=== PATIENT | female | born 1955 | race Caucasian/White ===

== ENCOUNTER 2016-06-20 16:22 | Inpatient (IN) | payer BC ==
--- NOTE | ~2016-06-20 | HP ---
History And Physical [address] [place] [address] NAME: ROSAURA KAPADIA : 51 STATUS : [facility]M [facility]#: [id number] AGE: 60 ADM/REG DATE : 06/20/16 MR#: [id number] REPORT SERV DATE: 06/20/16 DICTATED BY: BÁRBARA HU DATE: 06/20/16 REPORT STATUS : Draft TRANSCRIBED BY: MODL DATE: 06/20/16 DATE OF ADMISSION: 06/20/2016 ADDENDUM: ABG came back and showed pH of 7.36, pCO2 of 46, PO2 of 50, oxygen saturation was 85.2 on 28% of inspired oxygen, which is consistent with hypoxemic respiratory failure. We will monitor patient's steroids. Will be given DuoNeb breathing treatment. She is currently on oxygen 3 L nasal cannula, but if necessary the patient will be started on BiPAP. MG/MONALISA Bárbara Hu M.D. / [id number] CC: Bárbara Hu M.D.
--- NOTE | ~2016-06-20 | HP ---
History And Physical [id number] [facility] [place]. [address] NAME: ROSAURA KAPADIA : 51 STATUS : ADM IN [facility]#: [id number] AGE: 60 ADM/REG DATE : 06/20/16 MR#: [id number] REPORT SERV DATE: 06/20/16 DICTATED BY: BÁRBARA HU DATE: 06/20/16 REPORT STATUS : Draft TRANSCRIBED BY: MODLucia DATE: 06/20/16 DATE OF ADMISSION: 06/20/2016 HISTORY OF PRESENT ILLNESS: The patient is a very pleasant, 60-year-old female, who was transferred from [facility] Emergency Room from the care of Dr. Hall because of the COPD exacerbation. On arrival to the floor, the patient was dyspneic and hypoxemic on room air. She denies any chest pain. She is complaining of a dry-nonproductive cough. She says that her symptoms started approximately three days ago. She reported that her initially had upper respiratory infection and then, she contracted from him, and she had a sensation of being feverish, hot and cold, as well as she denies any chest pain. No abdominal pain. No diarrhea. No constipation. No headaches. REVIEW OF SYSTEMS: All 14-point review of systems done and negative except what is stated in the history of present illness. PAST MEDICAL HISTORY: Known for history of COPD. She denies use of home oxygen. She said that she had a bad exacerbation 3 years ago, but not recently. She also has history of hypertension. She denies any history of heart attacks. No strokes. No diabetes. No thyroid disease. PAST SURGICAL HISTORY: Includes right-sided breast cancer, status post mastectomy in 1998; and also a history of back surgery. SOCIAL HISTORY: She smokes one pack per day, sometimes more than one pack a day and sometimes less, but mostly one pack a day for many years. No alcohol. No recreational drugs. She is . Her is at the bedside. She has one grown up child. FAMILY HISTORY: Mother of pancreatic cancer. Father of heart problems. ALLERGIES: SHE IS ALLERGIC TO CODEINE. HOME MEDICATIONS: Include Norvasc 5 mg a day and losartan 100 mg a day. PHYSICAL EXAMINATION: GENERAL: Overweight female, in mild respiratory distress. VITAL SIGNS: Blood pressure 131/67. Oxygen saturation was 95 on 3 L nasal cannula, it was 88 on room air. Heart rate 88-92, respiratory rate 18-20, temperature 97.1. HEENT: Head atraumatic, normocephalic. Conjunctivae clear. Pupils are equal and reactive to light and accommodation. Extraocular muscles are intact. NECK: Supple. Trachea is midline. No supraclavicular or cervical lymphadenopathy. LUNGS: Diminished breath sounds bilaterally with slightly increased respiratory effort. CARDIOVASCULAR SYSTEM: Regular rate and rhythm. Point of maximal impulse is not displaced. ABDOMEN: Soft, nontender, nondistended. Positive normoactive bowel sounds. Obese. EXTREMITIES: No clubbing, cyanosis, or edema. SKIN: Normal color and turgor. History And Physical [address] [address] NAME: ROSAURA KAPADIA : 51 STATUS : ADM IN [facility]#: [id number] AGE: 60 ADM/REG DATE : 06/20/16 MR#: [id number] REPORT SERV DATE: 06/20/16 DICTATED BY: BÁRBARA HU DATE: 06/20/16 REPORT STATUS : Draft TRANSCRIBED BY: MONALISA DATE: 06/20/16 NEUROLOGIC: Awake, alert, and oriented in time, place, and person. Muscle strength is 5/5 bilaterally on upper and lower extremities. PSYCHIATRIC: Normal mood and affect. LABORATORY RESULTS: Labs were done today at [facility] showed sodium of 137, potassium is 4.4, chloride down to 102, carbon dioxide 28, blood sugar 141, BUN 10, creatinine 0.8. She had an EKG done at [facility], which showed normal sinus rhythm with a rate of 87, possible left atrial enlargement, anterior infarction of undetermined age. Chest x-ray which was done at [facility], no acute abnormality, only coarse bronchovascular structures, typically emphysema or chronic lung disease. White count was 7.4, hemoglobin 15.6, hematocrit 48.1, and platelet count was 179. Troponin was 0. ASSESSMENT AND PLAN: 1. This is a very pleasant, 60-year-old female with a past medical history of chronic obstructive pulmonary disease, who presented with acute chronic obstructive pulmonary disease exacerbation, very significant, accompanied with dyspnea and mild respiratory distress. 2. Hypoxemia. Her oxygen saturation initially on arrival to the [facility] was 82% on room air. She was hypoxemic. She was in acute respiratory failure, but she responded well to oxygen. Plan will be: She was already given Decadron at [facility]. We will continue intravenous Solu-Medrol intravenously as well as she is currently on oxygen. I am going to order arterial blood gas on this patient, and we will also give her DuoNeb breathing treatment, and we will put her on oral Levaquin. There are no infiltrates, but since this is severe chronic obstructive pulmonary disease exacerbation, we will put her on oral Levaquin. We will check her procalcitonin, as well as we will check her troponin serially, repeat EKG, and repeat chest x-ray. 3. Hypertension. We will continue her blood pressure medications which she takes at home, as well as we will add hydralazine intravenously as needed for systolic blood pressure of 160 and above. Arterial blood gas is currently ordered, I will review it, and I also consulted senior marketing manager since she is in respiratory distress. If the arterial blood gas is required, we may put her on BiPAP as well. 4. We will check echocardiogram in the morning. 5. Dr. Malloy as well is consulted. MG/MONALISA Bárbara Hu M.D. / [id number] CC: Bárbara Hu M.D. History And Physical [address] [address] NAME: ROSAURA KAPADIA : 51 STATUS : ADM IN [facility]#: [id number] AGE: 60 ADM/REG DATE : 06/20/16 MR#: [id number] REPORT SERV DATE: 06/20/16 DICTATED BY: BÁRBARA HU DATE: 06/20/16 REPORT STATUS : Draft TRANSCRIBED BY: MODL DATE: 06/20/16 Tatyana Cheng M.D.
--- NOTE | ~2016-06-20 | CN ---
Consultation Report [id number] [place]. [address] NAME: ROSAURA KAPADIA : 51 STATUS : ADM IN [facility]#: [id number] AGE: 60 ADM/REG DATE : 06/20/16 MR#: [id number] REPORT SERV DATE: 06/21/16 DICTATED BY: DESHAWN CROOKS DATE: 06/21/16 REPORT STATUS : Draft TRANSCRIBED BY: MODL DATE: 06/21/16 CONSULTATION DATE OF CONSULTATION: 06/21/2016 REASON FOR CONSULTATION: Rosaura Kapadia is a 60-year-old female, who is referred for aortic stenosis on echocardiogram. HISTORY OF PRESENT ILLNESS: Mrs. Kapadia has a long history of COPD with continued cigarette smoking. She has undergone an undergone and was admitted to the hospital. At that time, she had an echocardiogram done, which showed mild aortic stenosis. REVIEW OF SYSTEMS: No history of syncope or presyncope. No history of congestive heart failure, chest pain, or chest discomfort. No other symptoms of valvular heart disease are found. PAST MEDICAL HISTORY: 1. COPD with continued cigarette smoking. 2. Hypertension with left ventricular hypertrophy. SOCIAL HISTORY: She continues to smoke. She does not drink. She is fairly inactive. FAMILY HISTORY: Negative for early heart disease. PHYSICAL EXAMINATION: VITAL SIGNS: Blood pressure is 169/79, pulse is 96, and she is afebrile. GENERAL: Resting comfortably. Nutritional status appears adequate. EYES: PERRLA. LUNGS: No labored use of accessory muscles. Expiratory wheezes are heard. COR: PMI is not displaced. No thrills or heaves. NL S1 and S2. Systolic ejection murmur is heard diffusely. PULSES: Carotids without bruits. ABD: +BS, nontender. EXT: No cyanosis, clubbing, or edema. SKIN: No petechiae. NEURO: Alert and oriented. Does not appear anxious or depressed. LABORATORY EVALUATION: 1. Echocardiogram showed mild aortic stenosis. It also shows left ventricular hypertrophy. 2. Troponin is negative. 3. BNP is 15. ASSESSMENT: At this time, she has mild aortic stenosis. I do not see any reason to treat at Consultation Report [address] [place]. [address] NAME: ROASURA KAPADIA : 51 STATUS : ADM IN PAT#: [id number] AGE: 60 ADM/REG DATE : 06/20/16 MR#: [id number] REPORT SERV DATE: 06/21/16 DICTATED BY: DESHAWN CROOKS DATE: 06/21/16 REPORT STATUS : Draft TRANSCRIBED BY: MONALISA DATE: 06/21/16 this time. She will need a repeat echocardiogram in two or three years. YESENIA/MONALISA Deshawn Crooks M.D. / [id number] CC: Jimmy Waddell M.D.
--- NOTE | ~2016-06-20 | CN ---
Consultation Report [facility] [address] [place]. [address] NAME: ROSAURA KAPADIA : 51 STATUS : ADM IN PAT#: [id number] AGE: 60 ADM/REG DATE : 06/20/16 MR#: [id number] REPORT SERV DATE: 06/21/16 DICTATED BY: NILESH FELIZ DATE: 06/21/16 REPORT STATUS : Draft TRANSCRIBED BY: MODL DATE: 06/21/16 CONSULTATION DATE OF CONSULTATION: 06/21/2016 CHIEF COMPLAINT: Shortness of breath in a patient experiencing an exacerbation of COPD. HISTORY OF PRESENT ILLNESS: Mrs. Rosaura Kapadia is a very pleasant 60-year-old white female with a past medical history significant for clinical COPD, hypertension, and previous breast cancer who presents to [facility] from outside facility with complaints of worsening shortness of breath of two to three days' duration. It should be noted that the patient has not been hospitalized recently. Mrs. Kapadia is not currently followed by comfort station supervisor. She does not usually require supplemental oxygen. She is on no pulmonary medications. The patient smoked up until the time of presentation. She states that she has smoked approximately one pack a day for the last fifty years. She states that she has been assessed for obstructive sleep apnea as recently as 5 years ago. She describes her exercise tolerance as being excellent prior to this recent hospitalization, being able to ambulate over a city block without experiencing any shortness of breath. Mrs. Kapadia states that her developed cold-like symptoms approximately a week ago. Soon after, she began to notice increasing shortness of breath as well as subjective fever and one episode of night sweats. She started an unknown antibiotic that had previously been prescribed to her for bronchitis. She initially felt "slightly better." Unfortunately, she had worsening of her shortness of breath which culminated in her presentation to an outside facility. Upon arrival to the outside facility, it appears that her oxygen saturations were as low as 82% on room air. She was placed on supplemental oxygen with some improvement. She was given breathing treatments and was transferred to [facility] for further treatment. Since that time, she has received antibiotics, steroids, and breathing treatments with some improvement in her overall status. For the aforementioned reasons, she has been referred to the Pulmonary Service for further assessment. Currently, the patient's main pulmonary complaint is shortness of breath. This is worse on exertion and relieved by rest. She is requiring supplemental oxygen at 3-4 L with appropriate oxygenation sats. She does have a mild cough, but it is not producing a great deal of sputum. She denies any overt wheezing. She has had no recent episodes of hemoptysis. She denies previous pneumonias. She states that she did have an exacerbation of her breathing approximately three to four years ago, but otherwise her pulmonary status is stable. The patient does have known hypertension. She currently denies murmurs, angina, or palpitations. She denies any paroxysmal nocturnal dyspnea or worsening dependent edema. Consultation Report [facility] [address] [facility] [place]. [address] NAME: ROSAURA KAPADIA : 51 STATUS : ADM IN [facility]#: [id number] AGE: 60 ADM/REG DATE : 06/20/16 MR#: [id number] REPORT SERV DATE: 06/21/16 DICTATED BY: NILESH FELIZ DATE: 06/21/16 REPORT STATUS : Draft TRANSCRIBED BY: MONALISA DATE: 06/21/16 In regard to constitutional symptoms, she does confirm subjective fevers and one episode of night sweats. She denies any rigors. She denies any nausea or vomiting. She has had no abdominal pain or edema. She does have some left-sided pleuritic pain. PAST MEDICAL HISTORY: 1. Hypertension. 2. Breast cancer. 3. Clinical COPD. PAST SURGICAL HISTORY: 1. Right mastectomy. 2. Bilateral cataract surgery. 3. Back surgery in 2011. 4. Left hip surgery. 5. Right knee surgery. FAMILY HISTORY: There is a family history of pancreatic cancer. She states her father had emphysema. SOCIAL HISTORY: The patient is . She has one child who is in good health. She previously worked as a cross country truck driver. She denies any known exposures to dust, silica, or asbestos. She has no new pets in the home. TOBACCO/ALCOHOL: As previously mentioned, Mrs. Kapadia has smoked up until the time of presentation. She smoked approximately one pack a day for the last fifty years. She denies any recent alcohol or drug use. MEDICATIONS: 1. Albuterol. 2. Amlodipine 5 mg. 3. Zyrtec 10 mg. 4. Losartan 100 mg. 5. Naproxen 220 mg. ALLERGIES: THE PATIENT HAS ADVERSE REACTION TO CODEINE. REVIEW OF SYSTEMS: Complete review of systems was performed with pertinent positives and negatives contained within body of the HPI. PHYSICAL EXAMINATION: VITAL SIGNS: Blood pressure is 141/81, heart rate is 95, T-max is 97.8, respiratory rate is 18, SpO2 is 97% on 4 L. GENERAL: The patient is a pleasant, well-nourished/well-developed female who is not currently exhibiting any signs of acute distress. The patient is obese. Consultation Report [place] [id number] [facility] [place]. [address] NAME: ROSAURA KAPADIA : 51 STATUS : ADM IN [facility]#: [id number] AGE: 60 ADM/REG DATE : 06/20/16 MR#: [id number] REPORT SERV DATE: 06/21/16 DICTATED BY: NILESH FELIZ DATE: 06/21/16 REPORT STATUS : Draft TRANSCRIBED BY: MODLucia DATE: 06/21/16 Skin: Skin with appropriate texture and turgor. No rashes, lesions, or ulcers. Nails are clear without cyanosis or clubbing. HEENT: Head: Skull is normocephalic/atraumatic. Facies symmetric. No masses or lesions. Eyes: Sclera anicteric, conjunctiva pink without exudates. Extra ocular movements intact. Pupils are equal, round, reactive to light. Ears: Auricles and tragus without pain to palpation. Hearing is grossly intact. Nose: Bilateral nasal patency. Sinuses without tenderness upon palpation. Throat: Lips, oral mucosa, tongue, palate, and pharynx pink and moist without lesions. Uvula rises equally on phonation. Tongue midline without deviation. Exceedingly poor dentition. NECK: Neck supple. Trachea midline. No cervical lymphadenopathy appreciated. THORAX/LUNGS: Diminished breath sounds in the posterior bases. No wheezes or rhonchi appreciated. CARDIOVASCULAR: Regular rate and rhythm. No murmurs, rubs, or gallops. Anterior chest without thrills, heaves, or lifts. ABDOMEN: Soft. Non-distended, non-tender. Active bowel sounds in all four quadrants. No hepatosplenomegaly noted. PERIPHERAL VASCULAR: Mild nonpitting edema. No varicosities, stasis changes, open sores, ulcerations, or phlebitis. 2+ pulses in radial and dorsalis pedis. MUSCULOSKELETAL: Full AROM and PROM in all joints. No evidence of erythema, deformity, or crepitus. NEUROLOGIC: CN II - XII grossly intact. Good muscle bulk and tone bilaterally. Strength 5/5 throughout. PSYCHIATRIC: The patient demonstrates good judgment and insight. Pt is A&O x 3. ACCESSORY DATA: Reveals a creatinine of 0.86, blood glucose is 222, BNP is 15.2, procalcitonin is 0.06. Arterial blood gas on 2 L reveals pH of 7.36, PaCO2 of 46, PaO2 of 50, and a bicarb of 25.4. White blood cell count is 4200. Chest x-ray reveals no acute cardiopulmonary process. An echocardiogram is pending. IMPRESSION: 1. Acute hypoxemic respiratory failure. 2. Acute exacerbation of chronic obstructive pulmonary disease. 3. Tobacco dependency/complicated. 4. Hypertension. 5. Morbid obesity. 6. Possible obstructive sleep apnea. PLAN: 1. At this time, we will transition the patient to oral antibiotics. We will also adjust her steroids accordingly. We will place her on a full armamentarium of nebulized medications and add EzPAP to these treatments. We have offered the patient outpatient followup as well as pulmonary function testing. 2. In regard to the patient's tobacco dependency, we have spent greater than ten minutes counseling her in the benefits of smoking cessation. Consultation Report [address] [place]. [address] NAME: ROSAURA KAPADIA : 51 STATUS : ADM IN [facility]#: [id number] AGE: 60 ADM/REG DATE : 06/20/16 MR#: [id number] REPORT SERV DATE: 06/21/16 DICTATED BY: NILESH FELIZ DATE: 06/21/16 REPORT STATUS : Draft TRANSCRIBED BY: MODL DATE: 06/21/16 3. The patient states that, she has been tested as recently as five years for obstructive sleep apnea. That being said, she has had some weight gain since this time. We will obtain an overnight pulse oximetry to screen for obstructive sleep apnea prior to her discharge home. The aforementioned impression and plan has been discussed with Dr. Sanabria who will follow further recommendations. We thank you for this consult and look forward to participating in the care of Rosaura Kapadia. GBS/MODL Nilesh Feliz PA-C / [id number] CC: Yasemin Alegre M.D.
--- NOTE | ~2016-06-20 | DS ---
Discharge Summary [facility] [address] [place]. [address] NAME: ROSAURA KAPADIA : 51 STATUS : DIS IN PAT#: [id number] AGE: 60 ADM/REG DATE : 06/20/16 MR#: [id number] REPORT SERV DATE: 06/25/16 DICTATED BY: DAYSI ROSA DATE: 06/25/16 REPORT STATUS : Draft TRANSCRIBED BY: MODL DATE: 06/25/16 ADMISSION DATE: 06/20/2016 DISCHARGE DATE: 06/25/2016 DISCHARGE DIAGNOSES: 1. Acute hypoxic respiratory failure, improved, but the patient requires home oxygen at 2 L. 2. Acute on chronic diastolic dysfunction. 3. Tobacco abuse with clinical chronic obstructive pulmonary disease exacerbation. 4. Aortic stenosis. 5. Diabetes mellitus, this is a new diagnosis, the patient was put on lifestyle modification first at this moment. 6. Left chest wall pain secondary to cough. CTA of the chest was negative for PE. X-ray of the ribs on the left side was negative for fracture. CONSULTANTS: 1. Deshawn Crooks M.D.. 2. Daron Sanabria M.D. HISTORY OF PRESENT ILLNESS: This is a 60-year-old obese female patient, who came to the hospital with shortness of breath. Please see dictated H and P. HOSPITAL COURSE: She was admitted to the hospital with COPD exacerbation based on the history of tobacco abuse. She had an evaluation with echocardiogram which showed diastolic dysfunction with normal left ventricular function and right ventricular function but has also mild aortic stenosis. Mean pressure gradient was 12 mmHg. The patient has been mainly treated with maximized bronchodilator and IV diuretics. She is improved. Now, she has improved significantly, but she still requires home oxygen use. In the past, she was on oxygen for a while, and she had episodes of bronchitis at that time. I explained to her about the oxygen use at this point, it would be continuous, and needed reevaluation. We are going to make an appointment with the Pulmonary Clinic. Mainly, she was treated with IV diuretics and improved. She was found to have new diabetes, was seen by the diabetic education nurse here, and we emphasized lifestyle modification seriously. I am not going to put her on any diabetic medication at this point. Her sugar did not require a lot of insulin use with ADA diet in the hospital. Therefore, we are going to try the lifestyle modification first. She voiced understanding about smoking cessation and lifestyle modification and will follow up with the primary care for possible sleep study. Overall, had improvement, had maximized inpatient benefit. The patient will be discharged to home with home oxygen and furosemide 40 mg twice a day along with her other medications. Spiriva and Symbicort were started on this admission. Continue the Norvasc 5 mg once a day and continue the diclofenac NSAID topically for the Discharge Summary [address] [address] NAME: ROSAURA KAPADIA : 51 STATUS : DIS IN PAT#: [id number] AGE: 60 ADM/REG DATE : 06/20/16 MR#: [id number] REPORT SERV DATE: 06/25/16 DICTATED BY: DAYSI ROSA DATE: 06/25/16 REPORT STATUS : Draft TRANSCRIBED BY: MONALISA DATE: 06/25/16 left-sided chest pain, the Zyrtec 10 mg once a day, tapering dose of prednisone, Symbicort 160/4.5 twice a day, Spiriva 1 capsule once a day, continue the Proventil as needed. We will prescribe the nicotine patch for two more weeks' supply and again furosemide 40 mg twice a day. DISPOSITION: The patient is discharged to home in stable condition. TIME SPENT: More than 30 minutes on discharging, smoking cessation education, and counseling. EKL/MODL Daysi Rosa M.D. / [id number] CC: Daysi Rosa M.D.
[2016-06-20 17:17] LABS: ALLENS TEST Pos; BE (BASE EXCESS) -0.5 MEQ/L (0 +/- 2.5); CARBOXYHEMOGLOBIN 2.4 % (0-3); DEVICE NC; HCO3 (ACTUAL BICARBONATE) 25.4 MEQ/L (23-27); HEMOBLOGIN CONTENT 16.3 G/DL (12-16); INSTRUMENT SERIAL # 8083; METHEMOGLOBIN 0.1 % (0-3); OPERATOR ID 32214; PCO2 (CO2 TENSION) 46 MMHG (35-45); PO2 (O2 TENSION) 50 MMHG (79-93); SAMPLE Arterial; pH 7.36 (7.37-7.43)
[2016-06-20] MEDS ORDERED: COZAAR100 MG PO (17:49)
[2016-06-20] MEDS ORDERED: NORV5 PO (17:49)
[2016-06-20] MEDS ORDERED: ALEVE220 MG PO (17:49)
[2016-06-20] MEDS ORDERED: ANACIN PO (17:50)
[2016-06-20] MEDS ORDERED: ALBUTEROL5 INH (17:50)
[2016-06-20] MEDS ORDERED: ZYRTEC ALLGY10 MG PO (17:52)
[2016-06-20 20:42] LABS: TROPONIN I <0.02 NG/ML (<0.05); ULTRASENSITIVE TSH 0.624 MCIU/ML (0.358-3.740)
[2016-06-20 21:38] LABS: PROCALCITONIN 0.06 ng/mL (<0.5)
[2016-06-21 01:36] LABS: BASOPHILS 0.5 %; BASOPHILS ABSOLUTE 0.02 10/3/uL (0.0-0.16); EOSINOPHILS 0 %; HEMATOCRIT 49.2 % (36.0-48.0); HEMOGLOBIN 15.4 g/dL (12.0-16.0); IMMATURE GRANULOCYTES 0.7 %; IMMATURE GRANULOCYTES ABSOLUTE 0.03 10/3/uL (0.0-0.11); LYMPHOCYTES 14.7 %; LYMPHOCYTES ABSOLUTE 0.62 10/3/uL (0.67-4.30); MEAN PLATELET VOLUME 9.6 fL (9.2-13.0); MONOCYTES 3.3 %; MONOCYTES ABSOLUTE 0.14 10/3/uL (0.21-1.20); NEUTROPHILS 80.8 %; NEUTROPHILS ABSOLUTE 3.42 10/3/uL (2.02-8.40); PLATELET COUNT 188 10/3/uL (150-400); RED CELL COUNT 5.94 10/6/uL (4.0-5.6)
[2016-06-21 01:38] LABS: MANUAL DIFF NO %; MEAN CORPUS HGB CONC 31.3 g/dL (32.0-36.0); MEAN CORPUSCULAR HEMOGLOB 25.9 pg (26.0-34.0); MEAN CORPUSCULAR VOLUME 82.8 fL (80-100); RBC DISTRIBUTION WIDTH 17.9 % (12.0-16.0); WHITE BLOOD CELLS 4.2 10/3/uL (4.5-10.5)
[2016-06-21 01:53] LABS: BUN (BLOOD UREA NITROGEN) 15 MG/DL (6-23); CALCIUM, SERUM 8.1 MG/DL (8.5-10.4); CHLORIDE, SERUM 105 MMOL/L (96-112); CO2 (CARBON DIOXIDE) 29 MMOL/L (24-34); CREATININE 0.86 MG/DL (0.55-1.02); GFR AFRICAN AMERICAN 84 ML/MIN (>=60); GFR NON AFRICAN AMERICAN 72 ML/MIN (>=60); GLUCOSE, SERUM 222 MG/DL (60-99); SODIUM, SERUM 141 MMOL/L (135-148); TROPONIN I <0.02 NG/ML (<0.05)
[2016-06-22 05:31] LABS: BASOPHILS 0.3 %; BASOPHILS ABSOLUTE 0.02 10/3/uL (0.0-0.16); EOSINOPHILS 0 %; HEMATOCRIT 48.5 % (36.0-48.0); HEMOGLOBIN 15.2 g/dL (12.0-16.0); IMMATURE GRANULOCYTES 0.5 %; IMMATURE GRANULOCYTES ABSOLUTE 0.04 10/3/uL (0.0-0.11); LYMPHOCYTES ABSOLUTE 0.99 10/3/uL (0.67-4.30); MEAN CORPUS HGB CONC 31.3 g/dL (32.0-36.0); MEAN CORPUSCULAR HEMOGLOB 26.3 pg (26.0-34.0); MEAN CORPUSCULAR VOLUME 83.9 fL (80-100); MEAN PLATELET VOLUME 9.2 fL (9.2-13.0); MONOCYTES 5.7 %; MONOCYTES ABSOLUTE 0.43 10/3/uL (0.21-1.20); NEUTROPHILS 80.5 %; NEUTROPHILS ABSOLUTE 6.13 10/3/uL (2.02-8.40); PLATELET COUNT 171 10/3/uL (150-400); RBC DISTRIBUTION WIDTH 17.9 % (12.0-16.0); RED CELL COUNT 5.78 10/6/uL (4.0-5.6)
[2016-06-22 05:35] LABS: MANUAL DIFF NO %; WHITE BLOOD CELLS 7.6 10/3/uL (4.5-10.5)
[2016-06-22 05:48] LABS: BUN (BLOOD UREA NITROGEN) 17 MG/DL (6-23); CALCIUM, SERUM 8.4 MG/DL (8.5-10.4); CHLORIDE, SERUM 103 MMOL/L (96-112); CO2 (CARBON DIOXIDE) 30 MMOL/L (24-34); CREATININE 0.89 MG/DL (0.55-1.02); GFR AFRICAN AMERICAN 81 ML/MIN (>=60); GFR NON AFRICAN AMERICAN 69 ML/MIN (>=60); GLUCOSE, SERUM 184 MG/DL (60-99); PHOSPHORUS, SERUM 3.8 MG/DL (2.5-4.5); POTASSIUM, SERUM 5.1 MMOL/L (3.5-5.3); SODIUM, SERUM 142 MMOL/L (135-148)
[2016-06-22 17:30] LABS: BUN (BLOOD UREA NITROGEN) 19 MG/DL (6-23); CALCIUM, SERUM 8.6 MG/DL (8.5-10.4); CHLORIDE, SERUM 102 MMOL/L (96-112); CO2 (CARBON DIOXIDE) 29 MMOL/L (24-34); CREATININE 0.85 MG/DL (0.55-1.02); GFR AFRICAN AMERICAN 85 ML/MIN (>=60); GFR NON AFRICAN AMERICAN 73 ML/MIN (>=60); GLUCOSE, SERUM 147 MG/DL (60-99); POTASSIUM, SERUM 5.2 MMOL/L (3.5-5.3); SODIUM, SERUM 140 MMOL/L (135-148)
[2016-06-23 07:18] LABS: HEMATOCRIT 49.3 % (36.0-48.0); HEMOGLOBIN 15.5 g/dL (12.0-16.0); MEAN CORPUS HGB CONC 31.4 g/dL (32.0-36.0); MEAN CORPUSCULAR HEMOGLOB 25.7 pg (26.0-34.0); MEAN CORPUSCULAR VOLUME 81.6 fL (80-100); MEAN PLATELET VOLUME 9.2 fL (9.2-13.0); PLATELET COUNT 163 10/3/uL (150-400); RBC DISTRIBUTION WIDTH 17.7 % (12.0-16.0); RED CELL COUNT 6.04 10/6/uL (4.0-5.6); WHITE BLOOD CELLS 8.5 10/3/uL (4.5-10.5)
[2016-06-23 07:21] LABS: MANUAL DIFF YES %
[2016-06-23 07:33] LABS: BUN (BLOOD UREA NITROGEN) 20 MG/DL (6-23); CALCIUM, SERUM 7.8 MG/DL (8.5-10.4); CHLORIDE, SERUM 103 MMOL/L (96-112); CO2 (CARBON DIOXIDE) 31 MMOL/L (24-34); CREATININE 0.89 MG/DL (0.55-1.02); GFR AFRICAN AMERICAN 81 ML/MIN (>=60); GFR NON AFRICAN AMERICAN 69 ML/MIN (>=60); POTASSIUM, SERUM 4.6 MMOL/L (3.5-5.3); SODIUM, SERUM 144 MMOL/L (135-148)
[2016-06-23 07:35] LABS: GLUCOSE, SERUM 105 MG/DL (60-99)
[2016-06-23 07:51] LABS: ANISOCYTOSIS 1+ (5-10/OIF) (0-5/OIF); BAND NEUTROPHILS 7 %; HYPOCHROMIA 1+ (3-10/OIF) (0-2/OIF); LYMPHOCYTES 28 %; LYMPHOCYTES ABSOLUTE (CALC) 2.38 10/3/uL (0.67-4.30); MONOCYTES 3 %; MONOCYTES ABSOLUTE (CALC) 0.26 10/3/uL (0.21-1.20); NEUTROPHILS ABSOLUTE (CALC) 5.87 10/3/uL (2.02-8.40); PLATELET ESTIMATE ADQ (ADEQUATE); SEGMENTED NEUTROPHIL (0) 62 %; TOTAL NUCLEATED CELLS 100
[2016-06-23 07:52] LABS: MACROCYTES 1+ (5-10/OIF) (0-5/OIF); POLYCHROMASIA 1+ (2-5/OIF) (0-1/OIF)
[2016-06-23 13:08] LABS: IRON BINDING CAPACITY 427 MCG/DL (225-410); IRON, SERUM 136 MCG/DL (35-150)
[2016-06-25 06:06] LABS: HEMATOCRIT 48.1 % (36.0-48.0); HEMOGLOBIN 15.5 g/dL (12.0-16.0); MEAN CORPUS HGB CONC 32.2 g/dL (32.0-36.0); MEAN CORPUSCULAR HEMOGLOB 26.2 pg (26.0-34.0); MEAN CORPUSCULAR VOLUME 81.4 fL (80-100); MEAN PLATELET VOLUME 9.9 fL (9.2-13.0); RBC DISTRIBUTION WIDTH 17.9 % (12.0-16.0); RED CELL COUNT 5.91 10/6/uL (4.0-5.6); WHITE BLOOD CELLS 9.2 10/3/uL (4.5-10.5)
[2016-06-25 06:07] LABS: MANUAL DIFF YES %; PLATELET COUNT 264 10/3/uL (150-400)
[2016-06-25 07:21] LABS: ANISOCYTOSIS 1+ (5-10/OIF) (0-5/OIF); BAND NEUTROPHILS 1 %; LYMPHOCYTES 24 %; LYMPHOCYTES ABSOLUTE (CALC) 2.21 10/3/uL (0.67-4.30); MONOCYTES 12 %; NEUTROPHILS ABSOLUTE (CALC) 5.89 10/3/uL (2.02-8.40); PLATELET ESTIMATE ADQ (ADEQUATE); SEGMENTED NEUTROPHIL (0) 63 %; TOTAL NUCLEATED CELLS 100
[2016-06-25 07:30] LABS: ALBUMIN 3.3 G/DL (3.5-5.0); BUN (BLOOD UREA NITROGEN) 22 MG/DL (6-23); CHLORIDE, SERUM 101 MMOL/L (96-112); CO2 (CARBON DIOXIDE) 34 MMOL/L (24-34); CREATININE 0.98 MG/DL (0.55-1.02); GFR AFRICAN AMERICAN 72 ML/MIN (>=60); GFR NON AFRICAN AMERICAN 62 ML/MIN (>=60); GLUCOSE, SERUM 116 MG/DL (60-99); PHOSPHORUS, SERUM 3.3 MG/DL (2.5-4.5); SODIUM, SERUM 143 MMOL/L (135-148)
[2016-06-25 07:31] LABS: POTASSIUM, SERUM 3.6 MMOL/L (3.5-5.3)
[2016-06-25] MEDS ORDERED: VOLTAREN1 % TOP (13:21)
[2016-06-25] MEDS ORDERED: FLONASE NAS (13:21)
[2016-06-25] MEDS ORDERED: HABIT21 TOP (13:22)
[2016-06-25] MEDS ORDERED: SPIRIVA INH (13:23)
[2016-06-25] MEDS ORDERED: SYMBICORT 160/41 INH INH (13:24)
[2016-06-25] MEDS ORDERED: L40 PO (13:27)
[2016-06-25] MEDS ORDERED: P10 PO (13:30)
[2016-06-25] MEDS ORDERED: PROVHFA INH (14:54)
== END 2016-06-25 17:09 | disposition home or self-care (01) | DRG 189 ==
LOC: 5SO 16:22 → 7NO 19:18
PROVIDERS: Hospitalist; Internal Medicine; Internal Medicine Critical Care Medicine
DX: J96.01 Acute respiratory failure with hypoxia (principal); I50.31 Acute diastolic (congestive) heart failure; J44.1 Chronic obstructive pulmonary disease with (acute) exacerbation; Z68.41 Body mass index [BMI] 40.0-44.9, adult; I35.0 Nonrheumatic aortic (valve) stenosis; E11.9 Type 2 diabetes mellitus without complications; I11.0 Hypertensive heart disease with heart failure; G47.33 Obstructive sleep apnea (adult) (pediatric); E66.01 Morbid (severe) obesity due to excess calories; F17.210 Nicotine dependence, cigarettes, uncomplicated; Z85.3 Personal history of malignant neoplasm of breast
CPT/HCPCS: 36600; 71010; 71100-LT; 71275; 80048; 80069; 82805; 82962; 83036; 83540; 83550; 83735; 83880; 84100; 84145; 84443; 84484; 85025; 87070; 87205; 93005; 94640; A9270-GY; C8929; J2930; Q9957; Q9967